=== PATIENT | male | born 1990 ===

== ENCOUNTER 2016-11-10 20:46 | Emergency (ER) | payer OTHER ==
[2016-11-10 21:08] VITALS: BP 137/78; PULSE 70; RESP 18; TEMP 98; O2SAT 98
[2016-11-10] MEDS ORDERED: ALUMINUM/MAGNESIUM 30 ML SUS PO ONE ×2 (21:14→21:29)
[2016-11-10] MEDS ORDERED: LIDOCAINE HCL 2% (VISCOUS) 20 ML SOL MT ONE ×2 (21:14→21:29)
[2016-11-10] MEDS ORDERED: ALUMINUM/MAGNESIUM 30 ML SUS ONE ×2 (21:17→22:14)
[2016-11-10] MEDS ORDERED: LIDOCAINE HCL 2% (VISCOUS) 20 ML SOL ONE ×2 (21:19→22:14)
[2016-11-10 21:32] LABS: HEMATOCRIT 47 % (39-53); MEAN CORPUSCULAR HGB CONC 33.6 gm/dl (32.0-36.0); MEAN CORPUSCULAR VOLUME 86 fL (80-100)
[2016-11-10 21:41] LABS: CALCIUM 9.4 mg/dl (8.5-10.1)
[2016-11-10 21:51] LABS: BASOPHILS % (MANUAL) 0 % (0-3); EOSINOPHILS % (MANUAL) 1 % (0-9); LYMPHOCYTES % (MANUAL) 16 % (10-50); NORMAL RBCS PRESENT
[2016-11-10] MEDS ORDERED: KETOROLAC TROMETHAMINE 30 MG/ML SOL IM ONE (22:17)
[2016-11-10] MEDS ORDERED: DIPHENHYDRAMINE 50 MG/ML SOL IM ONE (22:17)
[2016-11-10] MEDS ORDERED: DIPHENHYDRAMINE 50 MG/ML SOL ONE (22:28)
[2016-11-10] MEDS ORDERED: KETOROLAC TROMETHAMINE 30 MG/ML SOL ONE (22:28)
== END 2016-11-10 23:18 | disposition home or self-care (01) ==
LOC: ED 20:46
DX: K21.9 Gastro-esophageal reflux disease without esophagitis (principal)
CPT/HCPCS: 99283 ×3; 80053; 83690; 85007; 85027; 86140; J1200; J1885; 36415

== ENCOUNTER 2017-07-07 19:08 | Emergency (ER) | payer OTHER ==
[2017-07-07] MEDS ORDERED: AMOXIL/CLAVULANATE 875/125 TAB PO ONE (19:30)
[2017-07-07 20:07] VITALS: BP 122/75; PULSE 119; RESP 18; TEMP 98; O2SAT 94
== END 2017-07-07 19:30 | disposition left against medical advice (07) ==
LOC: ED 19:08
DX: S01.01XA Laceration without foreign body of scalp, initial encounter (principal); Y04.0XXA Assault by unarmed brawl or fight, initial encounter; Z72.89 Other problems related to lifestyle

== ENCOUNTER 2017-09-02 03:08 | Emergency (ER) | payer OTHER ==
[2017-09-02 03:17] VITALS: BP 142/78; PULSE 82; RESP 18; TEMP 97.8; O2SAT 98
== END 2017-09-02 03:22 | disposition home or self-care (01) ==
LOC: ED 03:08
DX: Z53.21 Procedure and treatment not carried out due to patient leaving prior to being seen by health care provider (principal)

== ENCOUNTER 2017-09-17 22:59 | Emergency (ER) | payer OTHER ==
[2017-09-18 02:02] VITALS: BP 132/79; PULSE 73; RESP 18; TEMP 96.6; O2SAT 96
== END 2017-09-18 01:10 | disposition home or self-care (01) ==
LOC: ED 22:59
DX: Z59.0 Homelessness (principal)
CPT/HCPCS: 99282

== ENCOUNTER 2018-08-08 01:54 | Emergency (ER) | payer OTHER ==
[2018-08-08 02:48] VITALS: TEMP 97.9
[2018-08-08 02:52] LABS: BASOPHILS % (AUTO) 1 % (0-3); EOSINOPHILS % (AUTO) 2 % (0-9); HEMATOCRIT 43 % (39-53); HEMOGLOBIN 14.7 gm/dl (13.5-17.7); LYMPHOCYTES % (AUTO) 35.2 % (10-50); MEAN CORPUSCULAR HEMOGLOBIN 29.9 pg (27.0-32.0); MEAN CORPUSCULAR HGB CONC 34.4 gm/dl (32.0-36.0); MEAN CORPUSCULAR VOLUME 87 fL (80-100); MONOCYTES % (AUTO) 8.9 % (0-12); NEUTROPHILS % (AUTO) 52.9 % (37-80)
[2018-08-08 02:54] LABS: AMPHETAMINES NEGATIVE (NEGATIVE); BARBITUATES NEGATIVE (NEGATIVE); BENZODIAZEPINES NEGATIVE (NEGATIVE); CANNABINOL(THC) POSITIVE (NEGATIVE); COCAINE(COC) NEGATIVE (NEGATIVE); METHADONE NEGATIVE (NEGATIVE); METHAMPHETAMINES NEGATIVE (NEGATIVE); OPIATES(OPI) NEGATIVE (NEGATIVE); OXYCODONE(OXY) NEGATIVE (NEGATIVE); PROPOXYPHENE(PPX) NEGATIVE (NEGATIVE); TRICYCLIC ANTIDEPRESSANTS NEGATIVE (NEGATIVE)
[2018-08-08 03:03] LABS: ALBUMIN 4.1 gm/dl (3.4-5.0); ALKALINE PHOSPHATASE 70 IU/L (46-116); ALT 28 IU/L (14-63); AST 14 IU/L (15-37); BILIRUBIN,TOTAL 0.4 mg/dl (0.2-1.0); BLOOD UREA NITROGEN 9 mg/dl (7-18); CALCIUM 8.5 mg/dl (8.5-10.1); CARBON DIOXIDE 26.7 mEq/L (21-32); CHLORIDE 106 mMol/L (98-107); GLUCOSE 98 mg/dl (74-106); POTASSIUM 3.6 mMol/L (3.5-5.1); SODIUM 144 mMol/L (136-145); TOTAL PROTEIN 7.4 gm/dl (6.4-8.2)
[2018-08-08 03:05] LABS: ACETAMINOPHEN < 2 ug/ml (10-30); ALCOHOL 0.146 gm/dl (0.000-0.08)
[2018-08-08 04:48] VITALS: BP 117/68; PULSE 75; RESP 16; O2SAT 97
== END 2018-08-08 09:45 | disposition short-term general hospital (02) | DRG 880 ==
LOC: ED 01:54
DX: R45.851 Suicidal ideations (principal); F12.90 Cannabis use, unspecified, uncomplicated; Y90.6 Blood alcohol level of 120-199 mg/100 ml
CPT/HCPCS: 36415; 80053; 80305; 80307; 84443; 85025; 99283; 99284

== ENCOUNTER 2018-09-04 00:17 | Emergency (ER) | payer MEDICAID ==
[2018-09-04 00:37] VITALS: TEMP 97.2
[2018-09-04 01:25] LABS: APPEARANCE,URINE Clear; BILIRUBIN,URINE NEGATIVE (NEGATIVE); COLOR,URINE Yellow; GLUCOSE, URINE (UA) NEGATIVE (NEGATIVE); KETONES,URINE NEGATIVE (NEGATIVE); LEUKOCYTE ESTERASE ,URINE NEGATIVE (NEGATIVE); NITRATE,URINE NEGATIVE (NEGATIVE); OCCULT BLOOD,URINE NEGATIVE (NEG-TRACE); PH,URINE 5.5; UROBILINOGEN,URINE 0.2 (0.2-1.0 EU)
[2018-09-04 01:34] LABS: BASOPHILS % (AUTO) 1 % (0-3); EOSINOPHILS % (AUTO) 5 % (0-9); HEMATOCRIT 45 % (39-53); HEMOGLOBIN 15.1 gm/dl (13.5-17.7); LYMPHOCYTES % (AUTO) 27.2 % (10-50); MEAN CORPUSCULAR HGB CONC 33.2 gm/dl (32.0-36.0); MEAN CORPUSCULAR VOLUME 87 fL (80-100); MONOCYTES % (AUTO) 5.1 % (0-12); NEUTROPHILS % (AUTO) 61.5 % (37-80)
[2018-09-04 01:44] LABS: ALBUMIN 4.1 gm/dl (3.4-5.0); ALKALINE PHOSPHATASE 58 IU/L (46-116); ALT 32 IU/L (14-63); AST 16 IU/L (15-37); BILIRUBIN,TOTAL 0.5 mg/dl (0.2-1.0); BLOOD UREA NITROGEN 10 mg/dl (7-18); CALCIUM 8.6 mg/dl (8.5-10.1); CARBON DIOXIDE 25.6 mEq/L (21-32); CHLORIDE 108 mMol/L (98-107); CREATININE 1.09 mg/dl (0.80-1.30); GLUCOSE 104 mg/dl (74-106); POTASSIUM 3.4 mMol/L (3.5-5.1); SALICYLATE < 2.8 mg/dl (2.8-30.0); SODIUM 146 mMol/L (136-145); THYROID STIMULATING HORMONE 2.097 uIU/ml (0.358-3.740); TOTAL PROTEIN 7.7 gm/dl (6.4-8.2)
[2018-09-04 01:52] LABS: ACETAMINOPHEN < 2 ug/ml (10-30); ALCOHOL 0.224 gm/dl (0.000-0.08)
[2018-09-04 02:04] LABS: AMPHETAMINES NEGATIVE (NEGATIVE); BACTERIA NEGATIVE (< 1+); BARBITUATES NEGATIVE (NEGATIVE); BENZODIAZEPINES NEGATIVE (NEGATIVE); CANNABINOL(THC) POSITIVE (NEGATIVE); COCAINE(COC) NEGATIVE (NEGATIVE); CRYSTALS NEGATIVE (0-3 AVE/HPF); EPITHELIAL CELLS 0-1 (SQUAMOUS); METHADONE NEGATIVE (NEGATIVE); METHAMPHETAMINES NEGATIVE (NEGATIVE); OPIATES(OPI) NEGATIVE (NEGATIVE); OXYCODONE(OXY) NEGATIVE (NEGATIVE); PROPOXYPHENE(PPX) NEGATIVE (NEGATIVE); RBC,URINE 0-1 (0-3AV/HPF); TRICYCLIC ANTIDEPRESSANTS NEGATIVE (NEGATIVE); WBC,URINE NEG (0-5AV/HPF)
[2018-09-04 05:48] VITALS: BP 99/49; PULSE 81; RESP 14; O2SAT 93
== END 2018-09-04 07:15 | disposition short-term general hospital (02) | DRG 880 ==
LOC: ED 00:17
DX: R45.851 Suicidal ideations (principal); Z72.89 Other problems related to lifestyle; Y90.7 Blood alcohol level of 200-239 mg/100 ml; F12.90 Cannabis use, unspecified, uncomplicated
CPT/HCPCS: 36415; 80053; 80305; 80307; 81001; 84443; 85025; 99285; 99291